=== PATIENT | female | born 1955 | race Two or more races ===

== ENCOUNTER → 2017-01-14 | Outpatient (CLI) | payer BC | LOC: FIMAGING 08:15 | PROVIDERS: ATTEND Internal Medicine Hematology & Oncology | DX: Z12.31 Encounter for screening mammogram for malignant neoplasm of breast (principal); Z85.3 Personal history of malignant neoplasm of breast | CPT/HCPCS: G0202 ==

== ENCOUNTER → 2018-01-28 | Outpatient (CLI) | payer BC | LOC: FIMAGING 14:28 | PROVIDERS: ATTEND Internal Medicine Hematology & Oncology | DX: Z12.31 Encounter for screening mammogram for malignant neoplasm of breast (principal); Z85.3 Personal history of malignant neoplasm of breast ==

== ENCOUNTER → 2018-06-12 | Outpatient (CLI) | payer BC | LOC: FIMAGING 14:21 | DX: Z13.820 Encounter for screening for osteoporosis (principal); M85.89 Other specified disorders of bone density and structure, multiple sites ==